=== PATIENT | female | born 1965 | race Caucasian/White ===

== ENCOUNTER 2017-05-05 17:00 | Inpatient (IN) | payer MEDICAID ==
[~2017-05-05] VITALS: Ht 167.6 cm; Wt 138.5 kg
[~2017-05-05 17:00] MED LIST: ASPIR 8181 MG PO; CELEXA20 MG PO; COLACE100 MG PO; LAC PO; LANTUS SOLOS100 U/M1 SQ; LEVOTHYROXINE0.2 M2 PO; LEXAPRO10 MG PO; LISINOPRIL2.5 MG; METFORMIN500 M1 PO; MEV20 PO; MEVACOR20 MG PO; MOTRIN800 MG PO; NITROSTAT0.4 MG SL; NORCO1 TA1 PO; NORCO1 TA2 PO; OMEPRAZOLE10 M1 PO; PROAIR HFA0.09 MG/A1 INH; SIMVASTATIN80 M1 PO; SYMBICORT1 AE2 INH; SYNTHROID0.1 MG PO; SYNTHROID0.2 MG PO; TESSALON PERLE100 MG PO; ZES10 PO; ZOF4 PO
[2017-05-05 21:08] LABS: urine erythrocyte NEGATIVE (NEGATIVE)
[2017-05-05 21:12] LABS: microscopic required? YES
[2017-05-05 21:22] LABS: AMPHETAMINE QUAL UR NONE DETECTED (NEG <=1000)
[2017-05-05 21:35] LABS: BASOPHIL % 1.1 % (0-2); PLATELET COUNT 279 x10^3mcL (130-400)
[2017-05-05 21:40] LABS: RED CELL DISTRIBUTION WIDTH 18.6 % (11.5-14.5)
[2017-05-05 21:50] LABS: CALCIUM 9.2 mg/dL (8.5-10.1); CARBON DIOXIDE 30.8 mmol/L (21-32); CHLORIDE SERUM 98 mmol/L (98-107); GFR1 > 60 mL/min; GLUCOSE SERUM 294 mg/dL (74-106); POTASSIUM SERUM 4.1 mmol/L (3.5-5.1); SODIUM SERUM 136 mmol/L (136-145)
[2017-05-05 21:54] LABS: ALBUMIN 3.4 g/dL (3.4-5.0); ALKALINE PHOSPHATASE 179 U/L (46-116); ALT/SGPT 78 U/L (14-59); AMYLASE 35 U/L (25-115); AST/SGOT 142 U/L (15-37); BILIRUBIN TOTAL 0.6 mg/dL (0.20-1.00); CHOLESTEROL 189 mg/dL (<200); LIPASE 200 IU/L (73-393)
[2017-05-05 21:56] LABS: HDL CHOLESTEROL 32 mg/dL (40-60); TOTAL PROTEIN, SERUM 8.3 g/dL (6.4-8.2)
[2017-05-05 23:52] LABS: MAGNESIUM 2.1 mg/dL (1.8-2.4); PHOSPHOROUS 2.3 mg/dL (2.5-4.9)
[2017-05-05 23:53] LABS: T3 TOTAL 0.22 ng/mL
[2017-05-06] VITALS (8 sets, daily range): BP systolic 102–129; BP diastolic 64–82
[2017-05-06 00:42] LABS: FREE T4 0.25 ng/dL (0.76-1.46); FREE THYROXINE INDEX 0.1 ug/dL (1.4-4.5); T4(THYROXINE) < 0.5 ug/dL (4.7-13.3)
[2017-05-06 04:24] LABS: BASOPHIL % 0.5 % (0-2); PLATELET COUNT 262 x10^3mcL (130-400)
[2017-05-06 04:30] LABS: RED CELL DISTRIBUTION WIDTH 18.7 % (11.5-14.5)
[2017-05-06 04:36] LABS: CALCIUM 8.7 mg/dL (8.5-10.1); CARBON DIOXIDE 32.5 mmol/L (21-32); CHLORIDE SERUM 98 mmol/L (98-107); GFR1 > 60 mL/min; GLUCOSE SERUM 342 mg/dL (74-106); SODIUM SERUM 135 mmol/L (136-145)
[2017-05-06] MEDS ORDERED: GLUCOTROL5 MG PO (08:04)
[2017-05-06] MEDS ORDERED: SPIRONOLACTONE25 MG PO (08:05)
[2017-05-06] MEDS ORDERED: METFORMIN HCL500 MG PO (08:05)
[2017-05-06] MEDS ORDERED: MONTELUKAST SOD10 M1 PO (08:05)
[2017-05-06] MEDS ORDERED: LEVOTHYROXINE300 MCG PO (08:05)
[2017-05-06] MEDS ORDERED: GABAPENTIN600 M1 PO (08:06)
[2017-05-06] MEDS ORDERED: PIOGLITAZONE HC15 MG PO (08:06)
[2017-05-06] MEDS ORDERED: OMEPRAZOLE40 M1 PO (08:07)
[2017-05-06] MEDS ORDERED: MEDDP PO (16:31)
[2017-05-06] MEDS ORDERED: FLE10 PO (16:42)
[2017-05-07 05:52] VITALS: BP 108/56
[2017-05-07 07:39] LABS: IRON 36 ug/dL (50-170); TOTAL IRON BINDING CAPACITY 427 ug/dL (250-450)
[2017-05-07 07:46] LABS: CALCIUM 8.9 mg/dL (8.5-10.1); CARBON DIOXIDE 30.4 mmol/L (21-32); CHLORIDE SERUM 97 mmol/L (98-107); CREATININE SERUM 0.9 mg/dL (0.6-1.0); GFR1 > 60 mL/min; GLUCOSE SERUM 390 mg/dL (74-106); MAGNESIUM 2.2 mg/dL (1.8-2.4); PHOSPHOROUS 3.1 mg/dL (2.5-4.9); SODIUM SERUM 135 mmol/L (136-145)
[2017-05-07 08:47] LABS: BASOPHIL % 0.1 % (0-2); PLATELET COUNT 259 x10^3mcL (130-400); RED BLOOD CELLS 3.98 M/mm3 (4.10-5.10); RED CELL DISTRIBUTION WIDTH 18.9 % (11.5-14.5)
[2017-05-07 09:45] VITALS: BP 116/74
[2017-05-07] MEDS ORDERED: METFORMIN HCL850 MG PO (10:58)
[2017-05-07] MEDS ORDERED: GLUCOTROL10 MG PO (10:58)
[2017-05-07] MEDS ORDERED: LANTUS SOLOS100 U/M1 SQ (10:58)
[2017-05-07] MEDS ORDERED: ACCU-CHEK1 EAC2 MC (11:00)
[2017-05-07] MEDS ORDERED: MUCINEX600 MG PO (11:55)
[2017-05-07 14:09] VITALS: BP 110/69
[2017-05-07 17:49] VITALS: BP 110/60
[2017-05-07 19:30] VITALS: BP 115/70
[2017-05-07 19:48] LABS: CALCIUM 8.7 mg/dL (8.5-10.1); CARBON DIOXIDE 29.1 mmol/L (21-32); CREATININE SERUM 1.2 mg/dL (0.6-1.0); POTASSIUM SERUM 4.1 mmol/L (3.5-5.1)
[2017-05-07 21:37] VITALS: BP 115/70
[2017-05-08 06:21] VITALS: BP 111/75
[2017-05-08 06:41] LABS: BASOPHIL % 0.2 % (0-2); PLATELET COUNT 249 x10^3mcL (130-400)
[2017-05-08 06:45] LABS: RED CELL DISTRIBUTION WIDTH 18.7 % (11.5-14.5)
[2017-05-08 07:19] LABS: CALCIUM 8.4 mg/dL (8.5-10.1); CARBON DIOXIDE 29.5 mmol/L (21-32); CREATININE SERUM 1.1 mg/dL (0.6-1.0); MAGNESIUM 2.1 mg/dL (1.8-2.4); PHOSPHOROUS 3.4 mg/dL (2.5-4.9)
[2017-05-08 09:25] VITALS: BP 126/79
[2017-05-08] MEDS ORDERED: HUMULIN R100 U/1 M1 SC (11:21)
[2017-05-08 12:35] VITALS: BP 111/60
[2017-05-08 13:34] VITALS: BP 111/60
[2017-05-08 17:57] VITALS: BP 120/71
== END 2017-05-08 18:51 | disposition home or self-care (01) | DRG 203 ==
LOC: ED 17:00 → DU 22:53
PROVIDERS: Emergency Medicine; Family Medicine
DX: M94.0 Chondrocostal junction syndrome [Tietze] (principal); D68.69 Other thrombophilia; E44.0 Moderate protein-calorie malnutrition; E11.65 Type 2 diabetes mellitus with hyperglycemia; I42.2 Other hypertrophic cardiomyopathy; E87.1 Hypo-osmolality and hyponatremia; Z68.42 Body mass index [BMI] 45.0-49.9, adult; E83.39 Other disorders of phosphorus metabolism; E03.9 Hypothyroidism, unspecified; D72.829 Elevated white blood cell count, unspecified; I10 Essential (primary) hypertension; E78.5 Hyperlipidemia, unspecified; E66.01 Morbid (severe) obesity due to excess calories; J45.901 Unspecified asthma with (acute) exacerbation; B37.49 Other urogenital candidiasis; D64.9 Anemia, unspecified; T38.0X5A Adverse effect of glucocorticoids and synthetic analogues, initial encounter; Y92.238 Other place in hospital as the place of occurrence of the external cause; R74.0 Nonspecific elevation of levels of transaminase and lactic acid dehydrogenase [LDH]
CPT/HCPCS: 36600; 82947; 82962; 83880; 84439; J1450; J1815; J1885; J1940; J2920; J2930; J7030; J7512; J7620; J7626; Q0092

== ENCOUNTER 2017-05-22 20:22 | Inpatient (IN) | payer MEDICAID ==
[~2017-05-22] VITALS: Ht 167.6 cm; Wt 136.5 kg
[~2017-05-22 20:22] MED LIST changes: +ACCU-CHEK1 EAC2 MC; +FLE10 PO; +GABAPENTIN600 M1 PO; +GLUCOTROL10 MG PO; +GLUCOTROL5 MG PO; +HUMULIN R100 U/1 M1 SC; +LEVOTHYROXINE300 MCG PO; +MEDDP PO; +METFORMIN HCL500 MG PO; +METFORMIN HCL850 MG PO; +MONTELUKAST SOD10 M1 PO; +MUCINEX600 MG PO; +OMEPRAZOLE40 M1 PO; +PIOGLITAZONE HC15 MG PO; +SPIRONOLACTONE25 MG PO
[2017-05-22 22:09] LABS: BASOPHIL % 0.5 % (0-2); PLATELET COUNT 266 x10^3mcL (130-400); RED CELL DISTRIBUTION WIDTH 18.4 % (11.5-14.5)
[2017-05-22 22:28] LABS: ALBUMIN 3.6 g/dL (3.4-5.0); BILIRUBIN TOTAL 0.5 mg/dL (0.20-1.00); C REACTIVE PROTEIN 4.4 mg/dL (<=0.9); CALCIUM 9.5 mg/dL (8.5-10.1); CARBON DIOXIDE 29.9 mmol/L (21-32); CREATININE SERUM 1.1 mg/dL (0.6-1.0); POTASSIUM SERUM 4.7 mmol/L (3.5-5.1); TOTAL PROTEIN, SERUM 8.1 g/dL (6.4-8.2)
[2017-05-22] MEDS ORDERED: AMLODIPINE BESYL5 M2 PO (22:33)
[2017-05-22 22:38] LABS: T3 TOTAL 0.43 ng/mL
[2017-05-22 22:51] LABS: ERYTHROCYTE SED RATE 57 mm/hr (0-20); FREE T4 0.28 ng/dL (0.76-1.46); FREE THYROXINE INDEX 0.3 ug/dL (1.4-4.5); T4(THYROXINE) 1.1 ug/dL (4.7-13.3)
[2017-05-22 22:53] LABS: CK-MB 0.9 ng/mL (0-3.6)
[2017-05-22 23:49] LABS: urine erythrocyte NEGATIVE (NEGATIVE)
[2017-05-22 23:53] LABS: microscopic required? YES
[2017-05-23] VITALS (7 sets, daily range): BP systolic 112–142; BP diastolic 68–88; Ht 167.6 cm; Wt 136.5 kg
[2017-05-23 00:58] LABS: CHOLESTEROL/HDL RATIO 4.6; MAGNESIUM 1.8 mg/dL (1.8-2.4); PHOSPHOROUS 3.3 mg/dL (2.5-4.9)
[2017-05-23 02:11] LABS: AMPHETAMINE QUAL UR NONE DETECTED (NEG <=1000)
[2017-05-23 05:59] LABS: BASOPHIL % 0.6 % (0-2); PLATELET COUNT 216 x10^3mcL (130-400)
[2017-05-23 06:24] LABS: CARBON DIOXIDE 30.3 mmol/L (21-32); CHLORIDE SERUM 98 mmol/L (98-107); CREATININE SERUM 0.9 mg/dL (0.6-1.0); GFR1 > 60 mL/min; GLUCOSE SERUM 381 mg/dL (74-106); MAGNESIUM 1.9 mg/dL (1.8-2.4); PHOSPHOROUS 3.6 mg/dL (2.5-4.9); SODIUM SERUM 134 mmol/L (136-145)
[2017-05-23 06:52] LABS: RED CELL DISTRIBUTION WIDTH 18.5 % (11.5-14.5)
[2017-05-24 06:33] VITALS: BP 117/74
[2017-05-24 07:19] LABS: CALCIUM 8.3 mg/dL (8.5-10.1); CARBON DIOXIDE 27.7 mmol/L (21-32); CHLORIDE SERUM 101 mmol/L (98-107); CREATININE SERUM 0.8 mg/dL (0.6-1.0); GFR1 > 60 mL/min; GLUCOSE SERUM 219 mg/dL (74-106); POTASSIUM SERUM 3.8 mmol/L (3.5-5.1); SODIUM SERUM 138 mmol/L (136-145)
[2017-05-24 10:00] VITALS: BP 105/51
[2017-05-24 10:28] LABS: BASOPHIL % 0.3 % (0-2); PLATELET COUNT 217 x10^3mcL (130-400)
[2017-05-24 10:29] LABS: RED CELL DISTRIBUTION WIDTH 18.6 % (11.5-14.5)
[2017-05-24 14:24] VITALS: BP 106/61
[2017-05-24 18:08] VITALS: BP 101/53
[2017-05-24 21:07] VITALS: BP 142/92
[2017-05-25 05:30] VITALS: BP 108/80
[2017-05-25 07:29] LABS: BASOPHIL % 0.8 % (0-2); PLATELET COUNT 204 x10^3mcL (130-400)
[2017-05-25 07:44] LABS: CALCIUM 8.5 mg/dL (8.5-10.1); CARBON DIOXIDE 26.4 mmol/L (21-32); CHLORIDE SERUM 104 mmol/L (98-107); CREATININE SERUM 0.8 mg/dL (0.6-1.0); GFR1 > 60 mL/min; GLUCOSE SERUM 217 mg/dL (74-106); MAGNESIUM 1.9 mg/dL (1.8-2.4); PHOSPHOROUS 2.6 mg/dL (2.5-4.9); POTASSIUM SERUM 4.3 mmol/L (3.5-5.1); SODIUM SERUM 140 mmol/L (136-145)
[2017-05-25 07:58] LABS: RED CELL DISTRIBUTION WIDTH 18.6 % (11.5-14.5)
[2017-05-25 09:19] VITALS: BP 117/54
[2017-05-25 13:27] VITALS: BP 96/67
[2017-05-25 15:48] VITALS: BP 122/71
[2017-05-25 22:31] VITALS: BP 100/53
[2017-05-26 02:42] LABS: IRON 44 ug/dL (50-170); TOTAL IRON BINDING CAPACITY 365 ug/dL (250-450)
[2017-05-26 04:05] LABS: RED BLOOD CELLS 3.59 M/mm3 (4.10-5.10)
[2017-05-26 06:31] LABS: ALKALINE PHOSPHATASE 167 U/L (46-116); ALT/SGPT 86 U/L (14-59); AST/SGOT 106 U/L (15-37); BILIRUBIN TOTAL 0.33 mg/dL (0.20-1.00); CALCIUM 8.7 mg/dL (8.5-10.1); CARBON DIOXIDE 30.5 mmol/L (21-32); CHLORIDE SERUM 105 mmol/L (98-107); CREATININE SERUM 0.8 mg/dL (0.6-1.0); GFR1 > 60 mL/min; GLUCOSE SERUM 207 mg/dL (74-106); POTASSIUM SERUM 4.1 mmol/L (3.5-5.1); SODIUM SERUM 140 mmol/L (136-145); TOTAL PROTEIN, SERUM 6.6 g/dL (6.4-8.2)
[2017-05-26 06:33] VITALS: BP 110/72
[2017-05-26 06:38] LABS: ALBUMIN 2.7 g/dL (3.4-5.0)
[2017-05-26 06:41] LABS: BASOPHIL % 0.7 % (0-2); PLATELET COUNT 208 x10^3mcL (130-400)
[2017-05-26 08:17] VITALS: BP 110/71
[2017-05-26] MEDS ORDERED: FER300 PO (14:26)
[2017-05-26 15:48] VITALS: BP 110/71
[2017-05-26] MEDS ORDERED: IBUPROFEN800 MG PO (16:27)
== END 2017-05-26 17:09 | disposition home health service (06) | DRG 243 ==
LOC: ED 20:22 → MU 23:15 → DU 23:15 → MU 05-26 09:16
PROVIDERS: Family Medicine; Specialist; Student in an Organized Health Care Education/Training Program
DX: K21.9 Gastro-esophageal reflux disease without esophagitis (principal); N17.0 Acute kidney failure with tubular necrosis; E11.00 Type 2 diabetes mellitus with hyperosmolarity without nonketotic hyperglycemic-hyperosmolar coma (NKHHC); Z68.42 Body mass index [BMI] 45.0-49.9, adult; I43 Cardiomyopathy in diseases classified elsewhere; E87.1 Hypo-osmolality and hyponatremia; E66.01 Morbid (severe) obesity due to excess calories; E11.65 Type 2 diabetes mellitus with hyperglycemia; E87.8 Other disorders of electrolyte and fluid balance, not elsewhere classified; I11.9 Hypertensive heart disease without heart failure; K76.0 Fatty (change of) liver, not elsewhere classified; J45.909 Unspecified asthma, uncomplicated; E03.9 Hypothyroidism, unspecified; E78.5 Hyperlipidemia, unspecified; Z79.4 Long term (current) use of insulin; Z79.82 Long term (current) use of aspirin
CPT/HCPCS: 82962; 83880; 84439; 97110-GP; J1815; J1885; J7030; J7620; J7626; Q0092